=== PATIENT | male | born 1950 ===

== ENCOUNTER 2017-09-28 11:39 | Emergency (ER) | payer BC ==
[2017-09-28 11:58] VITALS: BMI 25.5
[2017-09-28 11:59] VITALS: RESP 18
[2017-09-28] MEDS ORDERED: Tdap Vaccine 0.5 ml Vial (10-64 yrs) IM ONE ×2 (12:14→12:33)
[2017-09-28] MEDS ORDERED: Tmp-Smz 800 mg-160 mg DS Tab PO STA (12:14)
[2017-09-28] MEDS ORDERED: Tmp-Smz 800 mg-160 mg DS Tab ONE (12:33)
--- NOTE | 2017-09-28 12:58 | C.PDOC ---
History Of Present Illness 67-year-old male, PMHx includes Hypertension, presents to the emergency department with complaints of left lower leg swelling and erythema. Patient states he sustained a cut to his leg from a piece of metal at work one week ago. Denies any fevers, numbness/weakness, nausea/vomiting or any other associated symptoms. No other complaints at this time. Time Seen by Provider: 09/28/17 12:09 Chief Complaint (Nursing): Lower Extremity Problem/Injury History Per: Patient History/Exam Limitations: no limitations Current Symptoms Are (Timing): Still Present Past Medical History Reviewed: Historical Data, Nursing Documentation, Vital Signs Vital Signs: Last Vital Signs Temp 98.2 F 09/28/17 13:32 Pulse 68 09/28/17 13:32 Resp 18 09/28/17 13:32 BP 166/107 H 09/28/17 13:32 Pulse Ox 98 09/28/17 13:32 - Medical History PMH: HTN, Hypercholesterolemia Surgical History: Appendectomy - [facility] Procedures ENDOSC POLYPECTOMY OF LG INTEST (11/02/14) MEASURE OF ARTERIAL PRESSURE, PERIPHERAL, GLOVE CLEANER APPROACH (10/20/15) MEASUREMENT OF CARDIAC RHYTHM, EXTERNAL APPROACH (10/20/15) Family History: States: No Known Family Hx - Social History Hx Tobacco Use: No Hx Alcohol Use: Yes Hx Substance Use: No - Immunization History Hx Tetanus Toxoid Vaccination: No Hx Influenza Vaccination: No Hx Pneumococcal Vaccination: No Review Of Systems Constitutional: Negative for: Fever Respiratory: Negative for: Shortness of Breath Gastrointestinal: Negative for: Nausea, Vomiting Musculoskeletal: Positive for: Leg Pain Skin: Negative for: Rash Neurological: Negative for: Weakness, Numbness Physical Exam - Physical Exam Appears: Non-toxic, No Acute Distress Skin: Normal Color, Warm, Dry, Other (Left lower leg: healed incision, mild erythema and warmth, 2cm) Head: Normacephalic Eye(s): bilateral: PERRL Nose: Normal Oral Mucosa: Moist Lips: Normal Appearing Neck: Normal ROM Chest: Symmetrical Cardiovascular: Rhythm Regular, No Murmur Respiratory: Normal Breath Sounds, No Accessory Muscle Use Gastrointestinal/Abdominal: Soft, No Tenderness Extremity: Normal ROM, No Deformity, No Swelling Pulses: Left Dorsalis Pedis: Normal, Right Dorsalis Pedis: Normal Neurological/Psych: Oriented x3, Normal Speech ED Course And Treatment O2 Sat by Pulse Oximetry: 99 (RA) Pulse Ox Interpretation: Normal Medical Decision Making Medical Decision Making: small area of cellulitis < 2 cm surrouding wound. antibiotics orered xr neg. no calf leg pain. dvt unlikely. pulses present Disposition - Disposition Disposition: HOME/ ROUTINE Disposition Time: 12:58 Condition: STABLE Additional Instructions: please follow up with your doctor/clinic. return to er with worsening symptoms or concerns. Prescriptions: Sulfamethoxazole/Trimethoprim [Bactrim DS 800 mg-160 mg] 1 tab PO BID #20 tab Instructions: Cellulitis (Skin Infection), Adult (DC) Forms: [facility] (Turkish) - Clinical Impression Clinical Impression: Cellulitis - Scribe Statement The provider has reviewed the documentation as recorded by the Scribe (Isaiah Murray) All medical record entries made by the Scribe were at my direction and personally dictated by me. I have reviewed the chart and agree that the record accurately reflects my personal performance of the history, physical exam, medical decision making, and the department course for this patient. I have also personally directed, reviewed, and agree with the discharge instructions and disposition.
--- NOTE | 2017-09-28 13:11 | RAD ---
PROCEDURE: Radiographs of the left tibia and fibula. HISTORY: trauma COMPARISON: None available. TECHNIQUE: Frontal and lateral views obtained. FINDINGS: BONES: No fracture or destructive lesion. JOINT SPACES: Unremarkable. OTHER FINDINGS: None. IMPRESSION: Unremarkable radiographs of the left tibia and fibula.
[2017-09-28 13:32] VITALS: BP 166/107; PULSE 68; TEMP 98.2
[2017-09-28 15:26] VITALS: O2SAT 99
== END 2017-09-28 13:51 | disposition home or self-care (01) ==
LOC: C.ER 11:39
DX: L03.116 Cellulitis of left lower limb (principal); Z23 Encounter for immunization